=== PATIENT | male | born 1975 | race Two or more races ===

== ENCOUNTER 2023-06-28 15:50 | Emergency (ER) | payer SELFPAY ==
[~2023-06-28] VITALS: Ht 162.6 cm; Wt 99.3 kg
[2023-06-28 16:19] LABS: Basophils # (auto) 0.1 10 ^3/uL (0-0.2); Basophils % (auto) 0.8 % (0.0-2.0); Eosinophils # (auto) 0 10 ^3/uL (0-0.8); Eosinophils % (auto) 0.1 % (0.0-7.0); Hematocrit 48.5 % (41.0-53.0); Lymphocytes # (auto) 2.5 10 ^3/uL (0.4-5.4); Lymphocytes % (auto) 21.8 % (10.0-50.0); Mean Corpuscular Hemoglobin 33.2 pg (28.0-32.0); Monocytes # (auto) 0.8 10 ^3/uL (0-1.3); Monocytes % (auto) 6.5 % (0.0-12.0); Neutrophils # (auto) 8.2 10 ^3/uL (1.6-8.6); Neutrophils % (auto) 70.8 % (37.0-80.0); Nucleated Red Blood Cells % 0.1 %; Red Cell Distribution Width 13.7 % (11.8-14.3); White Blood Cell 11.7 10^3/uL (4.4-10.8)
[2023-06-28] MEDS ORDERED: ONDANSETRON ODT 4 MG TAB PO ONE (16:30)
[2023-06-28 16:36] LABS: Alanine Aminotransferase 60 U/L (7-40); Albumin 4.4 g/dL (3.2-4.8); Alkaline Phosphatase 121 U/L (46-116); Anion Gap 8 (5-15); Aspartate Aminotransferase 25 U/L (13-40); BUN/Creatinine Ratio 11.5 (10.0-20.0); Bilirubin, Total 0.5 mg/dL (0.2-1.0); Blood Urea Nitrogen 12 mg/dL (9-23); Calcium 9.2 mg/dL (8.7-10.4); Carbon Dioxide 29 mmol/L (20-30); Chloride 100 mmol/L (98-107); Glucose 143 mg/dL (74-106); Potassium 3.6 mmol/L (3.5-5.1); Sodium 137 mmol/L (136-145); Total Protein 7.7 g/dL (5.7-8.2)
[2023-06-28 17:12] LABS: Urine Bacteria NONE SEEN /hpf (None Seen); Urine Blood Negative /uL (Negative); Urine Clarity Clear (Clear); Urine Color Colorless (Yellow); Urine Protein, UAD Negative (Negative); Urine Urobilinogen Normal (Negative); Urine WBC <1 /hpf (0 - 3); Urine pH 6.5 (5.0-8.0)
[2023-06-28 17:50] LABS: INR 1.09 (0.9-1.15); Partial Thromboplastin Time 27.9 SEC (24.5-34.5); Prothrombin Time 11.4 sec (9.3-11.8)
[2023-06-28] MEDS: NITROGLYCERIN 0.4 MG SL TAB SL ONE ×2 (18:35→18:42)
[2023-06-28] MEDS ORDERED: cloNIDine HCL 0.1 MG TAB PO ONE ×2 (18:45→20:30)
[2023-06-28 20:19] VITALS: BP 155/103; PULSE 95; RESP 19; TEMP 98.7; O2SAT 97
[2023-06-28] MEDS ORDERED: CLON0.2T PO (21:20)
[2023-06-28] MEDS ORDERED: IBUP-1455 PO (21:20)
== END 2023-06-28 21:59 | disposition home or self-care (01) ==
LOC: ER 15:50
DX: R07.81 Pleurodynia (principal); K76.0 Fatty (change of) liver, not elsewhere classified; R74.8 Abnormal levels of other serum enzymes; I10 Essential (primary) hypertension
CPT/HCPCS: 36415; 71045; 74176; 80053; 81001; 83690; 83880; 84484; 85025; 85610; 85730; 93005; 99285; Q0162